=== PATIENT | female | born 1995 | race African-American/Black ===

== ENCOUNTER 2021-02-13 02:18 | Emergency (ER) | payer OTHER ==
[~2021-02-13] VITALS: Ht 165.1 cm; Wt 54.4 kg
--- NOTE | ~2021-02-13 | EMS ---
[address] [address] EMS Patient Care Report Name: MELISSA VERDE Room #: DEP ARA Rivera#: [id number] Admission: 02/13/21 Attend Phys: Discharge: 02/13/21 Date of : [birth year] Report #: [id number] THIS REPORT FOR: //name// Report Transmitted: 02/13/2021 06:40 EMS Care Summary [place], [place]/[facility] Incident [id number] @ 02/13/2021 01:15 Incident Location [address] [place] [address] Patient MELISSA IRWIN Female, 25 Years 1995 Patient Address [address] [place] [address] Patient History None Reported, Patient Allergies No known allergies, Patient Medications None Reported, Chief Complaint I keep throwing up Disposition Transported No Lights/[place] Dis[place] Reason Sick Person Transported To [facility] Narrative Called for a sick. Upon arrival, pt was AZUL x 3 lying on the floor as if she was dying. Her Mom stated she went to [place] earlier for vomiting, diarrhea and chills. Pt said they didn't tell her anything was wrong and just sent her home, advised to call back if needed. Pt slightly uncooperative and appears [address] [address] EMS Patient Care Report Name: MELISSA VERDE Room #: DEP [facility].#: [id number] Admission: 02/13/21 Attend Phys: Discharge: 02/13/21 Date of : [birth year] Report #: [id number] irritated by us asking questions trying to figure out what is going on. Pt finally was willing to get up with assistance and walked to the ambulance where she climbed in and sat down w/o incident. Vitals obtained. 20g IV SL and 4.0mg Zofran IVP. D-stick and Vitals repeated. En route: pt slept the whole time. RR to the ER. Arrived: pt taken to ER #5 and moved to their bed w/o incident. Pt care & report to ER staff. Initial Vitals @01:40P: 56,R: 18,BP: 105/59,Pain: 0/10,GCS: 15,Glucose: 74,CO: 0,SpO2: 100,Revised Trauma: 12, @01:31P: 57,R: 18,BP: 103/66,Pain: 0/10,GCS: 15,SpO2: 100,Revised Trauma: 12, Assessments @01:25MENTAL:Event Oriented,Time Oriented,Person Oriented,Place Oriented,SKIN:HEENT:LUNG SOUNDS:General: Nausea,General: Diarrhea,General: Vomiting,ABDOMEN:General: Nausea,General: Diarrhea,General: Vomiting,PELVIS//GI:EXTREMITIES:Left Arm: No Abnormalities,Right Arm: No Abnormalities,Left Leg: No Abnormalities,Right Leg: No Abnormalities,PULSE:Radial: 2+ Normal,NEURO:No Abnormalities, Impression Vomiting Procedures @01:35Saline Lock 8cc (20 ga) Site: Antecubital-LeftResponse: UnchangedFailed@01:36Zofran - 4 Milligrams (mg) - Intravenous (IV)Response: Improved@01:25ALS AssessmentResponse: UnchangedSucceeded@01:30StretcherResponse: Unchanged Timeline 01:13,Call Received 01:13,Dispatch Notified 01:15,Dispatched 01:15,En Route 01:24,On Scene 01:25,At Patient 01:25,ALS Assessment,Response: UnchangedSucceeded, 01:30,Stretcher,Response: Unchanged 01:31,BP: 103/66 M,PULSE: 57,RR: 18 R,SPO2: 100 Ox,ETCO2: ,BG: ,PAIN: 0,GCS: 15, 01:35,Saline Lock 8cc 20 ga Site: Antecubital-Left,Response: UnchangedFailed, 01:36,Zofran - 4 Milligrams (mg) - Intravenous (IV),Response: Improved 01:40,BP: 105/59 M,PULSE: 56,RR: 18 R,SPO2: 100 Ox,ETCO2: ,B,PAIN: 0,GCS: 15, 01:43,Depart Scene 02:00,At Destination [address] [address] EMS Patient Care Report Name: CHRISTELLE MAIKELMELISSA Room #: DEP ARA Rivera#: [id number] Admission: 02/13/21 Attend Phys: Discharge: 02/13/21 Date of : [birth year] Report #: [id number] 02:14,Call Closed Disclaimer [email or web address] Copyright 2020 [employer] This EMS Care Summary contains data elements from the applicable legal record (which may be displayed differently). It is designed to provide pertinent information for the following purposes: continuity of care, clinical quality, and state data reporting. The complete legal record is available to ED staff and administrators of the receiving hospital in [employer]'s Patient Tracker. All data is provided "as is."
[2021-02-13 02:56] LABS: ABSOLUTE NEUTROPHILS 3.1 thou/uL (1.4-8.2); BASOPHILS 0.6 % (0.0-2.0); EOSINOPHILS 0.1 % (0.0-3.0); HEMATOCRIT 35.7 % (37.0-47.0); HEMOGLOBIN 12.2 gm/dL (12.0-15.0); MCH 32.8 pg (26.0-34.0); MCHC 34.3 g/dL (28.0-37.0); MCV 95.6 fL (80.0-100.0); PLATELET COUNT 237 thou/uL (150-400); POLYS 76.3 % (36.0-66.0); RBC 3.74 mil/uL (4.20-5.00); RDW 12.3 % (10.5-14.5); WBC 4.1 thou/uL (4.0-11.0)
[2021-02-13 03:00] LABS: CREATININE 1.2 mg/dL (0.6-1.0); POTASSIUM 3.9 mmol/L (3.5-5.1)
[2021-02-13 03:06] LABS: ALBUMIN 3.9 g/dL (3.4-5.0); TOTAL BILIRUBIN 0.4 mg/dL (0.2-1.0); TOTAL PROTEIN 7.7 g/dL (6.4-8.2)
[2021-02-13] MEDS ORDERED: ZOFRAN ODT4 MG PO (05:05)
[2021-02-13 05:42] VITALS: BP 98/54
== END 2021-02-13 05:50 | disposition home or self-care (01) ==
LOC: ER 02:18
PROVIDERS: Emergency Medicine
DX: U07.1 COVID-19 (principal); R10.819 Abdominal tenderness, unspecified site; R11.2 Nausea with vomiting, unspecified; F12.90 Cannabis use, unspecified, uncomplicated